=== PATIENT | female | born 1940 | race Caucasian/White ===

== ENCOUNTER 2017-08-03 21:33 | Emergency (ER) | payer BC ==
[2017-08-03 21:38] VITALS: TEMP 36.6; O2SAT 97; Ht 161.3 cm
[2017-08-03] MEDS ORDERED: SODIUM CHLORIDE 0.9% 1000ML 1,000 ML IV STA ×2 (21:58→23:53)
[2017-08-03 22:42] LABS: BASO % 0.2 %; BASO ABS # 0.02 K/uL (0-0.2); HEMATOCRIT 41.8 % (37-47); HEMOGLOBIN 13.8 g/dL (12.0-16.0); IG# 0.04 K/uL (0.00-0.02); MEAN CELL VOLUME 92.9 fL (80-100); MEAN CORPUSCULAR HEMOGLOBIN 30.7 pg (25-34); MONO % 9.1 %; MONO ABS # 1.01 K/uL (0.11-0.59); NEUT % 80.3 %; NEUT ABS # 8.87 K/uL (1.4-6.5); PLATELET COUNT 306 K/uL (130-400); RED CELL DISTRIBUTION WIDTH CV 17.4 % (11.5-14.5); RED CELL DISTRIBUTION WIDTH SD 59.3 fL (36.4-46.3); WHITE BLOOD COUNT 11.04 K/uL (4.8-10.8)
--- NOTE | 2017-08-03 22:59 | DIAGNOSTIC IMAGING REPORT ---
CHEST ONE VIEW PORTABLE CLINICAL HISTORY: CHEST PAIN dyspnea COMPARISON STUDY: None FINDINGS: Emphysematous change. Parenchymal infiltrate left base. Central catheter in superior vena cava. Right hemidiaphragm is smooth. IMPRESSION: Small infiltrate left base. Emphysematous change. The above report was generated using voice recognition software. It may contain grammatical, syntax or spelling errors. Electronically signed by: Daquan Vega M.D. 08/03/2017 10:58 PM Dictated Date/Time: 08/03/2017 10:57 PM
[2017-08-03 23:04] LABS: ALBUMIN 2.4 gm/dl (3.4-5.0); ALT/SGPT 16 U/L (12-78); BLOOD UREA NITROGEN 13 mg/dl (7-18); CARBON DIOXIDE 27 mmol/L (21-32); CREATININE 0.77 mg/dl (0.60-1.20); GLUCOSE 169 mg/dl (70-99); LIPASE 120 U/L (73-393); POTASSIUM 2.9 mmol/L (3.5-5.1); SODIUM 140 mmol/L (136-145)
[2017-08-03 23:08] LABS: ALKALINE PHOSPHATASE 83 U/L (45-117); AST/SGOT 20 U/L (15-37); PHOSPHORUS 2.4 mg/dl (2.5-4.9); TOTAL PROTEIN 6.3 gm/dl (6.4-8.2)
[2017-08-03] MEDS ORDERED: LEVO88TA PO (23:34)
[2017-08-03] MEDS ORDERED: ATEN-173 PO (23:34)
[2017-08-03] MEDS ORDERED: SIMV20TA2 PO (23:35)
[2017-08-03] MEDS ORDERED: POTASSIUM CHLORIDE 10 MEQ / 100ML WTR IV STA (23:53)
[2017-08-03] MEDS ORDERED: POT PHOSPHATE MONOBASIC W/ SOD TAB PO STA (23:53)
--- NOTE | 2017-08-03 23:59 | EMERGENCY ROOM VISIT NOTE ---
History Report prepared by Ashia: Nirmala Le Under the Supervision of: Dr. Clayton Fernando M.D. First contact with patient: 21:56 Chief Complaint: WEAKNESS Stated Complaint: DIZZINESS, WEAKNESS Nursing Triage Summary: Patient presents to the ED via EMS from home with c/o sudden onset of dizziness and weakness. Patient denies any shortness or breath or chest pain. Patient did not fall or have syncopal episode. Patient recently diagnosed with Esophageal CA in Jun and to start treatment next month. Patient has been losing weight, due to difficulty eating. History of Present Illness The patient is a 77 year old female who presents to the Emergency Room with complaints of worsening weakness starting tonight. The patient states that she was recently diagnosed with esophageal cancer at the base of her esophagus and partially into the stomach that is localized. She reports that it was found endoscopically after having difficulties swallowing. She reports that a PET scan revealed cancer only in her esophagus and fluid in her lungs that was removed. She states that she has not started chemotherapy because she just moved in with her brother from [place]. She states that her doctors their and her brother didn't think it would be good to go through the treatment alone. She states that the plan is to have radiations 5 times a week with chemo once a week for 6 weeks. She states that she has an appointment on August 12 at [facility] to continue her treatment. She states that she already has a port in place. The patient states tonight she got up to use the restroom and while washing her hands became extremely lightheaded. She reports that she felt weak and like she was going to pass out. She states that she couldn't stand so she sat down on the toilet and called her brother. She reports that he helped her walk to her room. She states that when the ambulance arrived she walked down the stairs with assistance, but was still weak. She states that at this point the lightheadedness had passed. She reports that she had a similar episode in April before her diagnosis when she was cleaning off her car. She states that she was dehydrated at the time. She notes that she has lost a tremendous amount of weight in a few months. She states that she has not been able to eat enough to gain the nutrition that she needs. She reports that she is only able to eat liquids, ice cream, yogurt, and soups. She notes that the secretions she keeps spitting are from the cancer. Source of History: patient Onset: tonight Position: other (global) Quality: other (weakness) Timing: worsening Note: The patient complains of lightheadedness and weight loss. Review of Systems See HPI for pertinent positives and negatives. A total of ten systems were reviewed and were otherwise negative. Past Medical & Surgical Medical Problems: (1) Esophageal cancer Family History No pertinent family history Social History Smoking Status: Former Smoker Marital Status: single Housing Status: lives with family Current/Historical Medications Scheduled Atenolol (Tenormin), 25 MG PO DAILY Levothyroxine Sodium (Synthroid), 88 MCG PO DAILY Ondasetron Odt (Zofran Odt), 4 MG SL Q6H Simvastatin (Zocor), 20 MG PO QPM Scheduled PRN Potassium Chloride 40 Meq/15 Ml (Potassium Chloride 40 Meq/15 Ml), 7.5 ML PO DAILY PRN for daily Allergies Coded Allergies: Codeine (Verified Allergy, Unknown, nausea, 08/03/17) Doxycycline (Verified Allergy, Unknown, rash, 08/03/17) Tetracyclines & Related (Verified Allergy, Unknown, rash, 08/03/17) Physical Exam Vital Signs Date Time Temp Pulse Resp B/P (MAP) Pulse Ox O2 Delivery O2 Flow Rate FiO2 08/04/17 05:41 138/87 08/04/17 03:31 67 14 136/77 08/04/17 01:31 79 131/89 08/04/17 01:28 66 08/03/17 23:32 62 16 130/81 08/03/17 22:00 Room Air 08/03/17 21:41 86 08/03/17 21:38 36.6 91 113/80 97 Room Air Physical Exam GENERAL: Awake, alert, chronically ill-appearing, in no distress, cachetic. HENT: Normocephalic, atraumatic. Oropharynx unremarkable. Dry cracked mucus membranes. EYES: Normal conjunctiva. Sclera non-icteric. NECK: Supple. No nuchal rigidity. FROM. No JVD. RESPIRATORY: Clear to auscultation. CARDIAC: Regular rate, normal rhythm. Extremities warm and well perfused. Pulses equal. ABDOMEN: Soft, non-distended. No tenderness to palpation. No rebound or guarding. No masses. RECTAL: Deferred. MUSCULOSKELETAL: Chest examination reveals no tenderness. The back is symmetrical on inspection without obvious abnormality. There is no CVA tenderness to palpation. No joint edema. LOWER EXTREMITIES: Calves are equal size bilaterally and non-tender. No edema. No discoloration. NEURO: Normal sensorium. No sensory or motor deficits noted. SKIN: No rash or jaundice noted. Medical Decision & Procedures ER Provider Diagnostic Interpretation: Radiology results as stated below per my review and radiologist interpretation: CHEST ONE VIEW PORTABLE CLINICAL HISTORY: CHEST PAIN dyspnea COMPARISON STUDY: None FINDINGS: Emphysematous change. Parenchymal infiltrate left base. Central catheter in superior vena cava. Right hemidiaphragm is smooth. IMPRESSION: Small infiltrate left base. Emphysematous change. The above report was generated using voice recognition software. It may contain grammatical, syntax or spelling errors. Electronically signed by: Daquan Vega M.D. 08/03/2017 10:58 PM Dictated Date/Time: 08/03/2017 10:57 PM Laboratory Results 08/03/17 22:32 Red Blood Count 4.50, Mean Corpuscular Volume 92.9, Mean Corpuscular Hemoglobin 30.7, Mean Corpuscular Hemoglobin Concent 33.0, Mean Platelet Volume 11.0, Neutrophils (%) (Auto) 80.3, Lymphocytes (%) (Auto) 10.0, Monocytes (%) (Auto) 9.1, Eosinophils (%) (Auto) 0.0, Basophils (%) (Auto) 0.2, Neutrophils # (Auto) 8.87, Lymphocytes # (Auto) 1.10, Monocytes # (Auto) 1.01, Eosinophils # (Auto) 0.00, Basophils # (Auto) 0.02 08/03/17 22:32 Test 08/03/17 22:32 08/04/17 03:25 White Blood Count 11.04 K/uL (4.8-10.8) Red Blood Count 4.50 M/uL (4.2-5.4) Hemoglobin 13.8 g/dL (12.0-16.0) Hematocrit 41.8 % (37-47) Mean Corpuscular Volume 92.9 fL (80-100) Mean Corpuscular Hemoglobin 30.7 pg (25-34) Mean Corpuscular Hemoglobin Concent 33.0 g/dl (32-36) Platelet Count 306 K/uL (130-400) Mean Platelet Volume 11.0 fL (7.4-10.4) Neutrophils (%) (Auto) 80.3 % Lymphocytes (%) (Auto) 10.0 % Monocytes (%) (Auto) 9.1 % Eosinophils (%) (Auto) 0.0 % Basophils (%) (Auto) 0.2 % Neutrophils # (Auto) 8.87 K/uL (1.4-6.5) Lymphocytes # (Auto) 1.10 K/uL (1.2-3.4) Monocytes # (Auto) 1.01 K/uL (0.11-0.59) Eosinophils # (Auto) 0.00 K/uL (0-0.5) Basophils # (Auto) 0.02 K/uL (0-0.2) RDW Standard Deviation 59.3 fL (36.4-46.3) RDW Coefficient of Variation 17.4 % (11.5-14.5) Immature Granulocyte % (Auto) 0.4 % Immature Granulocyte # (Auto) 0.04 K/uL (0.00-0.02) Anion Gap 8.0 mmol/L (3-11) Estimated GFR () 87.5 Estimated GFR (Non- 75.5 BUN/Creatinine Ratio 16.9 (10-20) Calcium Level 9.0 mg/dl (8.5-10.1) Phosphorus Level 2.4 mg/dl (2.5-4.9) Magnesium Level 2.2 mg/dl (1.8-2.4) Total Bilirubin 0.6 mg/dl (0.2-1) Direct Bilirubin 0.1 mg/dl (0-0.2) Aspartate Amino Transf (AST/SGOT) 20 U/L (15-37) Alanine Aminotransferase (ALT/SGPT) 16 U/L (12-78) Alkaline Phosphatase 83 U/L (45-117) Troponin I < 0.015 ng/ml (0-0.045) Total Protein 6.3 gm/dl (6.4-8.2) Albumin 2.4 gm/dl (3.4-5.0) Lipase 120 U/L (73-393) Urine Color DK YELLOW Urine Appearance CLEAR (CLEAR) Urine pH 5.0 (4.5-7.5) Urine Specific [place] 1.028 (1.000-1.030) Urine Protein NEG (NEG) Urine Glucose (UA) NEG (NEG) Urine Ketones 1+ (NEG) Urine Occult Blood NEG (NEG) Urine Nitrite NEG (NEG) Urine Bilirubin NEG (NEG) Urine Urobilinogen NEG (NEG) Urine Leukocyte Esterase TRACE (NEG) Urine WBC (Auto) 1-5 /hpf (0-5) Urine RBC (Auto) 0-4 /hpf (0-4) Urine Hyaline Casts (Auto) 10-30 /lpf (0-5) Urine Epithelial Cells (Auto) 20-30 /lpf (0-5) Urine Bacteria (Auto) NEG (NEG) Urine Crystals CALCIUM OXALATE (NONE Laboratory results reviewed by me Medications Administered Medications (Trade) Dose Ordered Sig/[place] Route Start Time Stop Time Status Last Admin Dose Admin Sodium Chloride 1,000 ml @ 999 mls/hr Q1H1M STAT IV 08/03/17 21:58 08/03/17 22:58 DC 08/03/17 22:44 999 MLS/HR Sodium Chloride 1,000 ml @ 999 mls/hr Q1H1M STAT IV 08/03/17 23:53 08/04/17 00:53 DC 08/03/17 23:53 999 MLS/HR Potassium Chloride (Kcl 10 Meq / Wtr) 40 meq NOW STAT IV 08/03/17 23:53 08/03/17 23:59 DC 08/03/17 23:53 40 MEQ Potassium/ Phosphorus/Sodium (Phospha 250 Neutral 155-852-130 Mg) 2 tab NOW STAT PO 08/03/17 23:53 08/03/17 23:59 DC 08/03/17 23:53 2 TAB Sodium Chloride 1,000 ml @ 999 mls/hr Q1H1M STAT IV 08/04/17 02:35 08/04/17 03:35 DC 08/04/17 02:35 999 MLS/HR ECG Per My Interpretation Indication: weakness Rate (beats per minute): 82 Rhythm: sinus rhythm Findings: nonspecific-ST abn (precordial), PAC, no acute ischemic change, other (normal axis, precordial non specifc t wave abnormality) ED Course 2208: The patient was evaluated in room A9B. A complete history and physical exam was performed. 0057: I reevaluated the patient and she is going to try to go home once she gets all her hydration and repletions. Medical Decision I reviewed the patient's past medical history, medications, and the nursing notes as described above. Differential diagnosis: Etiologies such as metabolic, infection, hypo/hyperglycemia, electrolyte abnormalities, cardiac sources, intracerebral event, toxicologic, neurologic, as well as others were entertained. The patient is a 77-year-old woman with a past medical history of a recent diagnosis of esophageal cancer being evaluated for treatment at [facility] presents emergency department with generalized weakness that became worse today per hpi. On arrival, the patient is fatigued and cachectic appearing but in no acute distress, afebrile stable vital signs. Labs consistent with dehydration with hypokalemia to 2.9 and hypophosphatemia of 2.4. Otherwise chest x-ray unremarkable. The patient is feeling improved with IV fluid hydration. Discussed with the patient the options for admission versus discharge and outpatient follow-up. After deliberation the patient preferred discharge. She will follow-up with her oncologist to see if she can obtain a sooner appointment to discuss initiation of her treatment and the possibility of placement of a gastric feeding tube given her limitations for oral intake in the setting of her esophageal cancer. Findings and plan for follow-up reviewed with patient. Patient agreeable and d/c'd per discharge instructions. Medication Reconcilliation Current Medication List: was personally reviewed by me Blood Pressure Screening Patient's blood pressure: Normal blood pressure Blood pressure disposition: Did not require urgent referral Impression Primary Impression: Dehydration Additional Impressions: Hypokalemia Hypophosphatemia Scribe Attestation The scribe's documentation has been prepared under my direction and personally reviewed by me in its entirety. I confirm that the note above accurately reflects all work, treatment, procedures, and medical decision making performed by me. Departure Information Dispostion Home / Self-Care Prescriptions Ondasetron Odt (ZOFRAN ODT) 4 Mg Tab 4 MG SL Q6H for Nausea, #10 TAB Prov: Clayton Fernando M.D. 08/04/17 Potassium Chloride 40 Meq/15 Ml (POTASSIUM CHLORIDE 40 MEQ/15 ML) 20 % Liq 7.5 ML PO DAILY Y for daily for 10 Days, #75 ML Prov: Clayton Fernando M.D. 08/04/17 Patient Instructions ED Dehydration, ED Potassium Deficiency, [facility], Phosphorus Additional Instructions Please follow up with your oncologist for a sooner appointment and establish care with a primary care physician for re-evaluation and repeat lab tests within the next week. Your symptoms are most likely due to dehydration and low potassium and phosphorus. Otherwise, your exam, EKG, chest xray, and lab results did not show signs of an emergent condition at this time. Liquid potassium supplementation as directed. Zofran as needed for nausea. Drink plenty of fluids to ensure hydration. Return to the emergency department for worsening symptoms as described in the accompanying instructions. Problem Qualifiers
[2017-08-04] MEDS ORDERED: POTA10LI12 PO (02:31)
[2017-08-04] MEDS ORDERED: ONDA4TAB10 SL (02:31)
[2017-08-04] MEDS ORDERED: SODIUM CHLORIDE 0.9% 1000ML 1,000 ML IV STA (02:35)
[2017-08-04 03:31] VITALS: PULSE 67
--- NOTE | 2017-08-04 04:30 | EMERGENCY ROOM VISIT NOTE ---
ED Visit Note First contact with patient: 02:38 I received this patient in signout at the change of shift from Dr. Fernando, pending urinalysis and IV fluids/electrolyte repletion. Urinalysis was obtained and is negative for infection. Patient was observed until her K riders were complete. Patient was reevaluated and was feeling well enough for discharge. She feels comfortable with the plan. She will return to the ER for worsening of symptoms or any medical concerns.
[2017-08-04 05:41] VITALS: BP 138/87
== END 2017-08-04 05:42 | disposition home or self-care (01) ==
LOC: C.EDA 21:38
DX: E86.0 Dehydration (principal); C15.9 Malignant neoplasm of esophagus, unspecified; R42 Dizziness and giddiness; Z88.5 Allergy status to narcotic agent; Z88.1 Allergy status to other antibiotic agents; E87.6 Hypokalemia; E83.39 Other disorders of phosphorus metabolism